=== PATIENT | male | born 1990 | race Caucasian/White ===

== ENCOUNTER 2018-09-02 09:24 | Emergency (ER) | payer OTHER ==
--- NOTE | 2018-09-02 11:26 | ED Physician Documentation ---
PD HPI LOWER EXT INJURY - Stated complaint Stated Complaint: L LEG PX - Chief complaint Chief Complaint: Ext Problem - History obtained from History obtained from: Patient - History of Present Illness PD HPI LOW EXT INJURY LOCATION: Left, Ankle Type of injury: Other (jujitsu) Where injury occurred: Other (gym) Timing - onset: How many days ago (4) Timing - duration: Days (4) Timing - details: Gradual onset, Still present Improved by: Rest, Immobilization Worsened by: Moving, Palpating Associated symptoms: No: Weakness, Numbness, Tingling, Swelling Contributing factors: No: Anticoagulated Similar symptoms before: Has not had sx before Recently seen: Not recently seen - Additional information Additional information: 28-year-old male who does [employer] daily for therapy has developed pain in the left Achilles tendon. He states that it hurts to touch the area and it hurts to move his foot. He has been hobbling around for about 4 days. He states that he does not remember any specific injury to the area did not have a contusion to the area and did not have direct trauma to the area. He states that he developed subtle pain that is worsened over the weekend. Review of Systems Constitutional: denies: Fever, Chills, Myalgias Eyes: denies: Decreased vision Ears: denies: Loss of hearing Nose: denies: Congestion Throat: denies: Sore throat Respiratory: denies: Cough GI: denies: Vomiting PD PAST MEDICAL HISTORY - Past Medical History Past Medical History: No - Past Surgical History Past Surgical History: No - Present Medications Home Medications: Ambulatory Orders Medication Instructions Recorded Confirmed RX: traMADol [Ultram] 50 - 100 mg PO Q6H #14 tablet 09/02/18 Rizatriptan Benzoate [Maxalt] 1 tab PO DAILY PRN 09/02/18 09/02/18 Topiramate [Topamax] 1 tab PO DAILY 09/02/18 09/02/18 - Allergies Allergies/Adverse Reactions: Allergies Allergy/AdvReac Type Severity Reaction Status Date / Time No Known Drug Allergies Allergy Verified 09/02/18 09:58 - Social History Does the pt smoke?: No Smoking Status: Never smoker Does the pt drink ETOH?: No Does the pt have substance abuse?: No - Immunizations Immunizations are current?: Yes - POLST Patient has POLST: No PD ED PE NORMAL - Vitals Vital signs reviewed: Yes (hypertensive) - General General: Alert and oriented X 3, No acute distress, Well developed/nourished - HEENT HEENT: Atraumatic, PERRL, EOMI - Respiratory Respiratory: No respiratory distress - Derm Derm: Normal color, Warm and dry, No rash - Extremities Extremities: No deformity, No edema, Other (There is specific point tenderness to the achilles tendon and the posterior fibular tendon. There is no palapble cord and no calf tenderness no posterior knee tenderness and no thigh tenderness. There is some swelling to the lateral aspcet of the left foot/ankle. ) - Neuro Neuro: Alert and oriented X 3, permanent waver 2-12 intact, No motor deficit, No sensory deficit, Normal speech Eye Opening: Spontaneous Motor: Obeys Commands Verbal: Oriented GCS Score: 15 - Psych Psych: Normal mood, Normal affect Results - Vitals Vitals: Vital Signs - 24 hr 09/02/18 09/02/18 09:54 12:59 Temperature 36.2 C L Heart Rate 48 L 62 Respiratory 16 18 Rate Blood Pressure 134/75 H 138/89 H O2 Saturation 99 99 Oxygen O2 Source Room air - Rads (name of study) ankle left Radiology: Prelim report reviewed (Impression: No fracture or dislocation.), EMP read indepedently, See rad report PD MEDICAL DECISION MAKING - ED course Complexity details: reviewed results, re-evaluated patient, considered differential, d/w patient ED course: 28-year-old male with pain over the Achilles with excessive workout doing [employer]. I suspect he has an Achilles tendinopathy and he is placed into a walking boot and we will refer him to orthopedics. He refuses the walking boot. Departure - Departure Disposition: 01 Home, Self Care Clinical Impression: Achilles tendinitis, right leg Condition: Stable Instructions: Achilles Tendonitis Follow-Up: [facility] [Provider Group] Prescriptions: RX: traMADol [Ultram] 50 - 100 mg PO Q6H #14 tablet Forms: Activity restrictions Discharge Date/Time: 09/02/18 13:01
--- NOTE | 2018-09-02 12:18 | XRAY Report ---
Reason: posterior pain Procedure Date: 09/02/2018 Accession Number: [id number] / [id number] Procedure: XR - Ankle 3 View LT CPT Code: FULL RESULT: EXAM: LEFT ANKLE RADIOGRAPHY EXAM DATE: 09/02/2018 11:43 AM. CLINICAL HISTORY: Posterior pain. COMPARISON: None. TECHNIQUE: 3 views. FINDINGS: Bones: No fracture is seen. Well-circumscribed ovoid hyperdensity in the distal tibia is felt to represent a benign bone island. No fractures or suspicious bone lesions. Joints: Normal. No effusion. No subluxations. The ankle mortise is normally aligned. Soft Tissues: Normal. No soft tissue swelling. IMPRESSION: No fracture or dislocation. RADIA
[2018-09-02 13:00] VITALS: BP 138/89
== END 2018-09-02 13:01 | disposition home or self-care (01) ==
LOC: ED 09:24
DX: M76.62 Achilles tendinitis, left leg (principal)
CPT/HCPCS: 99283